=== PATIENT | female | born 1945 | race Caucasian/White ===

== ENCOUNTER 2023-08-26 19:48 | Inpatient (IN) | payer OTHER, SELFPAY ==
[2023-08-26] VITALS (8 sets, daily range): BP systolic 167–217; BP diastolic 82–94; PULSE 80–86; RESP 15–30; TEMP 36.9; O2SAT 90–100; BMI 34.4
--- NOTE | 2023-08-26 19:47 | DI.CT.S_ITS ---
PROCEDURE: CT STROKE INDICATIONS: Positive BE-FAST, Stroke symptoms TECHNIQUE: Noncontrast 4.5 mm thick angled axial sections acquired from the foramen magnum to the vertex, with coronal reformats. For radiation dose reduction, the following was used: automated exposure control, adjustment of mA and/or kV according to patient size. COMPARISON: None. FINDINGS: Image quality: Diagnostic. CSF spaces: Basal cisterns are patent. No extra-axial fluid collections. Ventricles are normal in size and shape. Brain: No midline shift. No intracranial masses or hemorrhage. No area of hypodensity in a large vascular distribution to suggest acute infarction. Periventricular hypodensity consistent with chronic microvascular ischemic change. Age-related parenchymal loss. Skull and face: Calvarium and visualized facial bones are intact, without suspicious lesions. Sinuses: Visualized sinuses and mastoids are clear. IMPRESSION: No acute intracranial pathology. No acute intracranial hemorrhage. Comment: Findings were discussed with Dr. Tammy Valladares at 8:10 p.m. This study fulfills neurological imaging criteria for inclusion or exclusion of acute stroke therapies based on available published neurological imaging guidelines. Dictated by: Vin Mary M.D. on 08/26/2023 at 20:07 Approved by: Vin Mary M.D. on 08/26/2023 at 20:10
--- NOTE | 2023-08-26 19:47 | DI.RAD.S_ITS ---
PROCEDURE: XR CHEST 1V INDICATIONS: Possible stroke TECHNIQUE: One view of the chest was acquired. COMPARISON: None. FINDINGS: Surgical changes and devices: None. Lungs and pleura: Lungs are clear. No pleural effusions or pneumothorax. Mediastinum: Mediastinal contours appear normal. Heart size appears prominent. Bones and chest wall: No suspicious bony lesions. Overlying soft tissues appear unremarkable. IMPRESSION: No acute cardiopulmonary abnormality is seen. Dictated by: Vin Mary M.D. on 08/26/2023 at 21:00 Approved by: Vin Mary M.D. on 08/26/2023 at 21:01
--- NOTE | 2023-08-26 19:48 | DI.CT.S_ITS ---
PROCEDURE: CT ANGIO HEAD AND NECK INDICATIONS: raheem pollard 4 hours TECHNIQUE: After the administration of intravenous contrast, 1 mm thick sections acquired from the aortic arch through the [place] of [place]. 3-dimensional tpdfpfr-wvjmgzlrz-fojjraivqo (MIP) and/or volume rendering reformats were acquired of the central intracranial vasculature and neck separately. For radiation dose reduction, the following was used: automated exposure control, adjustment of mA and/or kV according to patient size. COMPARISON: [facility], CT, CT STROKE, 08/26/2023, 20:00. FINDINGS: Image quality: Diagnostic. BRAIN: CSF spaces: Ventricles are normal in size and shape. Basal cisterns are patent. No extra-axial fluid collections. Brain: No significant abnormality of the brain can be seen. Skull and face: Calvarium and facial bones appear intact, without suspicious lesions. Orbits appear normal. Sinuses: Sinuses and mastoids are clear. HEAD CT ANGIOGRAPHY: Anterior circulation: Intracranial internal carotid arteries are normal in size and flow. The flow within the paired anterior cerebral arteries is normal and symmetric. The flow within the middle cerebral arteries is normal and symmetric. The anterior communicating artery is seen. No aneurysms are seen. Posterior circulation: Visualized portions of the vertebral arteries demonstrate normal caliber, and join to form a normal appearing basilar artery. Flow within the posterior cerebral arteries is normal and symmetric. No aneurysms are seen. NECK CT ANGIOGRAPHY: Carotid system: The great vessels demonstrate a conventional anatomy as they arise from the aortic arch. The origins of the common carotid arteries appear patent. The common carotid arteries demonstrate normal caliber and courses. The bifurcation regions are both widely patent. Moderate plaque at the bilateral carotid bulbs. Less than 50% stenosis at the bilateral ICA. The internal carotid arteries demonstrate normal calibers and courses. Posterior circulation: The origins of the vertebral arteries both appear widely patent. The more superior extracranial portions of both vertebral arteries also demonstrate normal courses and calibers. They join to form a normal appearing basilar artery. Soft tissues: Thyroid gland is prominent. Small ill-defined thyroid nodules. No enlarged lymph nodes identified. Bones: No suspicious bony lesions. Moderate degenerative change in the cervical spine. Visualized cervical spine appears normally aligned. IMPRESSION: 1. No large vessel occlusion. 2. No critical stenosis. Any quantitative measurements of stenosis were performed using NASCET criteria. Dictated by: Vin Mary M.D. on 08/26/2023 at 20:15 Approved by: Vin Mary M.D. on 08/26/2023 at 20:22
[2023-08-26] MEDS: ONDANSETRON 4 MG/2 ML INJ IV (19:54)
--- NOTE | 2023-08-26 20:04 | ED_ITS ---
HPI - Neuro Symptoms/Deficit General Chief Complaint: Neuro Symptoms/Deficit Stated Complaint: Stroke Time Seen by Provider: 08/26/23 20:03 History of Present Illness HPI Narrative: Patient is a 78-year-old female with unknown history presenting today as a code stroke. Last known well is unknown. She is visiting from out of town at the [facility] having difficulty speaking. Unclear if she is on any blood thinners. was there but apparently was not helpful with information. Patient is able to follow commands but very confused with word salad. No facial droop. After further investigation, Daughter tracked down the in the [facility]. He reports that they went to dinner at 6pm and she was able to have conversation. Upon further questioning investigation I personally spoke with the who states that possible last known well at 4:30 a.m.. Has been seems to be very unreliable. I did actually speak with the security ambassador at the [facility] who reports that patient had issues with tick it around 6:40 p.m. he reports the interactions with her at that time were a little off but he did not notice anything obvious. She would difficult time finding her machine which is not uncommon in the [facility]. Sometime after that they were called again to evaluate a patient where she was having difficulty speaking and he reports by the time EMS arrived she had significantly declined. Related Data Home Medications Medication Instructions Recorded Confirmed nystatin-triamcinolone 100,000 topical 08/26/23 unit/gram-0.1 % topical ointment Allergies Allergy/AdvReac Type Severity Reaction Status Date / Time No Known Drug Allergies Allergy Verified 08/26/23 21:15 Patient History Social History Smoking Status: Unknown if ever smoked Exam Initial Vital Signs Initial Vital Signs: Vital Signs Temperature 98.4 F 08/26/23 19:45 Pulse Rate 81 08/26/23 19:45 Respiratory Rate 15 08/26/23 19:45 Blood Pressure 217/94 H 08/26/23 19:45 Pulse Oximetry 96 08/26/23 19:45 Oxygen Delivery Method Room Air 08/26/23 19:45 GENERAL: Alert 70-year-old female HEENT: Head atraumatic,EOMI, pupils reactive, face symmetric, no drooping CARDIOVASCULAR: Regular rate and rhythm without murmurs, rubs or gallops. RESPIRATORY: Breath sounds equal bilaterally, no wheezes rales or rhonchi. ABDOMEN: Soft, nontender. Normoactive bowel sounds all 4 quadrants. No guarding or rebound. EXTREMITIES: Normal range of motion, no clubbing or edema. Neurovascularly intact NEUROLOGICAL: Alert and oriented x1. No slurring of speech but definite. Cranial nerves II through XII grossly intact. Good jbbajm-as-hpcd, good ubet-ra-kirw, strength equal bilaterally, significant expressive aphasia no slurring of speech, sensation in tact to soft touch bilaterally, no visual changes, no facial droop SKIN: Warm, dry, no laceration, no petechiae, no rashes or lesions. Scores NIH Stroke Scale Level of Conciousness: Alert, keenly responsive Ask month/age: Answers one question correctly, intubated follow commands Open/close eyes, close hand: Performs both tasks correctly Best gaze horizontal: Normal Visual souza: No visual loss Facial palsy: Normal symetrical movement Left arm drift: No drift for full 10 sec Right arm drift: No drift for full 10 sec Left leg drift: No drift for full 5 sec Right leg drift: No drift for full 5 sec Limb ataxia: Absent Sensory on face/arms/legs: Normal, no sensory loss Best language: Severe aphasia, not much is understood, fragmented Dysarthria: Normal Extinction or inattention: No abnormality Total NIH Stroke scale score: 3 Course Orders Ordered: ED Orders 08/26/23 19:47 CT Stroke Stat XR chest 1V Stat EKG-12 Lead Stat 08/26/23 19:48 CT angio head and neck Stat 08/26/23 20:12 Complete Blood Count AUTO DIFF Stat Comprehensive Metabolic Panel Stat Ethanol (ETOH) Stat PTT Partial Thromboplastin Juan Stat Prothrombin Time INR Stat Troponin & CK Cardiac Panel Stat 08/26/23 20:20 Covid-19 + FLU A/B + RSV - PCR Stat 08/26/23 21:07 Urinalysis and Microscopic Stat Urine Drug Screen, Rapid Stat Acetaminophen (Acetaminophen 325 Mg Tablet) 650 mg PO Q6H PRN PRN Reason: Fever/Mild Pain (1-3) Aspirin (Aspirin Ec 325 Mg Tablet) 325 mg PO DAILY NANDO Atorvastatin Calcium (Atorvastatin 20 Mg Tablet) 20 mg PO BEDTIME NANDO Enoxaparin Sodium (Enoxaparin 40 Mg/0.4 Ml Syringe) 40 mg SUBCUT DAILY NANDO Hydralazine HCl (Hydralazine 20 Mg/Ml Vial) 10 mg IV Q6HR PRN PRN Reason: Hypertension sbp>170 Last Admin: 08/27/23 00:33 Dose: 10 mg Documented By: AT Magnesium Hydroxide (Magnesium Hydroxide 30 Ml Udc) 30 ml PO DAILY PRN PRN Reason: Constipation Naloxone HCl (Naloxone 0.4 Mg/Ml Vial) 0.2 mg IV Q2MIN PRN PRN Reason: Opiate Reversal Ondansetron HCl (Ondansetron 4 Mg/2 Ml Inj) 4 mg IV NOW PRN PRN Reason: Nausea And Vomiting Ondansetron HCl (Ondansetron 4 Mg Odt) 4 mg SL NOW PRN PRN Reason: Nausea And Vomiting Ondansetron HCl (Ondansetron 4 Mg/2 Ml Inj) 4 mg IV Q8HR PRN PRN Reason: Nausea And Vomiting Discontinued Medications Aspirin (Aspirin 81 Mg Chew Tab) 324 mg PO NOW ONE Stop: 08/26/23 20:56 Last Admin: 08/26/23 20:57 Dose: 324 mg Documented By: BB Alteplase, Recombinant (Activase) 9 mg in 9 mls @ 540 mls/hr 0.09 mg/kg (9 mg) IV NOW ONE Stop: 08/26/23 22:04 Last Admin: 08/26/23 22:25 Dose: Not Given Documented By: ROSEY Alteplase, Recombinant (Activase) 80.8 mg in 80.8 mls @ 80.8 mls/hr 0.81 mg/kg (80.8 mg) IV NOW ONE Stop: 08/26/23 23:04 Last Admin: 08/26/23 22:26 Dose: Not Given Documented By: BB Labetalol HCl (Labetalol 20 Mg/4 Ml Syringe) 10 mg IV NOW ONE Stop: 08/26/23 21:55 Last Admin: 08/26/23 22:25 Dose: Not Given Documented By: BB Ondansetron HCl (Ondansetron 4 Mg/2 Ml Inj) 4 mg IV NOW ONE Stop: 08/26/23 20:12 Last Admin: 08/26/23 19:54 Dose: 4 mg Documented By: BB Vital Signs Vital signs: Vital Signs - 8 hr 08/26/23 19:45 08/26/23 19:45 08/26/23 20:16 Temperature 98.4 F 98.4 F Pulse Rate 81 81 84 Respiratory Rate 15 15 24 Blood Pressure 217/94 H 217/94 H Pulse Oximetry 96 96 90 L Oxygen Delivery Method Room Air Room Air Oxygen Flow Rate 08/26/23 20:16 08/26/23 20:30 08/26/23 20:30 Temperature Pulse Rate 82 Respiratory Rate 29 H Blood Pressure 195/82 H 206/91 H Pulse Oximetry 92 Oxygen Delivery Method Room Air Oxygen Flow Rate 08/26/23 20:46 08/26/23 20:46 08/26/23 21:00 Temperature Pulse Rate 86 80 Respiratory Rate 30 H 15 Blood Pressure 214/87 H Pulse Oximetry 97 100 Oxygen Delivery Method Nasal Cannula Nasal Cannula Oxygen Flow Rate 2 2 08/26/23 21:00 08/26/23 21:15 08/26/23 21:15 Temperature Pulse Rate 80 Respiratory Rate 15 Blood Pressure 195/89 H 199/83 H Pulse Oximetry 97 Oxygen Delivery Method Oxygen Flow Rate 08/26/23 21:30 08/26/23 21:30 08/26/23 22:25 Temperature Pulse Rate 82 85 Respiratory Rate 15 Blood Pressure 167/92 H 167/92 H Pulse Oximetry 97 Oxygen Delivery Method Room Air Oxygen Flow Rate MDM - Neuro Symptoms/Deficit Lab Data 08/26/23 20:12 08/26/23 20:12 Labs: Lab Results 08/26/23 08/26/23 08/26/23 Range/Units 20:12 20:20 21:07 WBC 8.1 (4.5-11.0) X10^3/uL RBC 4.00 (4.0-5.2) X10^6/uL Hgb 10.5 L (12.0-16.0) g/dL Hct 32.3 L (36-46) % MCV 80.7 (80-100) fL MCH 26.1 (26-34) PG MCHC 32.4 (30-36) % RDW 15.1 H (11.6-14.8) % Plt Count 241 (150-400) X10^3/uL Neut % (Auto) 67.4 (50-75) % Lymph % (Auto) 21.4 L (25-40) % Elk % (Auto) 8.7 (3-14) % Eos % (Auto) 2.0 (2-4) % Baso % (Auto) 0.5 (0-2) % Neut # (Auto) 5500 (3307-1925) /uL Lymph # (Auto) 1700 (0649-9230) /uL Elk # (Auto) 700 (0-900) /uL Eos # (Auto) 200 (0-450) /uL Baso # (Auto) 0 (0-100) /uL PT 12.9 H (9.4-12.5) SECONDS INR 1.1 (0.9-1.3) APTT 28 (25.1-36.5) SECONDS Sodium 134 L (137-145) mmol/L Potassium 3.9 (3.4-5.1) mmol/L Chloride 100 (98-107) mmol/L Carbon Dioxide 26 (22-32) mmol/L BUN 21 H (7-17) mg/dL Creatinine 1.05 H (0.52-1.04) mg/dL Estimated GFR 54 L (>60) mL/min BUN/Creatinine Ratio 20.0 (6-22) Glucose 96 (80-110) mg/dL Calcium 10.3 H (8.4-10.2) mg/dL Total Bilirubin 0.5 (0.2-1.3) mg/dL AST 25 (14-36) IU/L ALT 20 (<35) IU/L Alkaline Phosphatase 60 (38-126) U/L Total Creatine Kinase 138 H (30-135) U/L Troponin I < 0.012 (0.01-0.034) ng/mL Total Protein 7.4 (6.3-8.2) g/dL Albumin 4.1 (3.5-5.0) g/dL Globulin 3.3 (1.7-4.1) g/dL Albumin/Globulin Ratio 1.2 (1.0-2.8) Urine Color Yellow Urine Appearance Clear Urine pH 5.5 (4.5-8.0) Ur Specific [place] 1.020 (1.000-1.035) Urine Protein Negative (Negative) Urine Glucose (UA) Negative (Negative) g/dL Urine Ketones Trace H (NEGATIVE) Urine Occult Blood Negative (Negative) Urine Nitrate Negative (Negative) Urine Bilirubin Negative (NEGATIVE) Urine Urobilinogen 0.2 (0.2) E.U./dL Ur Leukocyte Esterase Negative (NEGATIVE) Urine RBC 0-1/hpf (0-5/HPF) Urine WBC None seen (0-5/HPF) Ur Squamous Epith Cells 0-1 /hpf (0-5/HPF) Urine Bacteria None seen (None) Ur Culture Indicated? Cult not indicated U Opiates 300ng/mL cut Negative (Negative) Ur Oxycodone Screen Negative (Negative) Urine Methadone Screen Negative (Negative) Ur Barbiturates Screen Negative (Negative) U Tricyclic Antidepress Negative (Negative) Ur Phencyclidine Scrn Negative (Negative) Ur Amphetamines Screen Negative (Negative) U Methamphetamines Scrn Negative (Negative) Ur MDMA Scrn (Ecstasy) Negative (Negative) U Benzodiazepines Scrn Negative (Negative) Urine Cocaine Screen Negative (Negative) U Marijuana (THC) Screen Negative (Negative) Urine Specific [place] (Normal) Ethyl Alcohol < 10 ( - 10) mg/dL Ur Creatinine (Normal) SARS-CoV-2 (PCR) Negative (Negative) Influenza A (RT-PCR) Flu a negative (NEGATIVE) Influenza B (RT-PCR) Flu b negative (NEGATIVE) RSV (PCR) Negative (Negative) 08/26/23 Range/Units 21:07 WBC (4.5-11.0) X10^3/uL RBC (4.0-5.2) X10^6/uL Hgb (12.0-16.0) g/dL Hct (36-46) % MCV (80-100) fL MCH (26-34) PG MCHC (30-36) % RDW (11.6-14.8) % Plt Count (150-400) X10^3/uL Neut % (Auto) (50-75) % Lymph % (Auto) (25-40) % Elk % (Auto) (3-14) % Eos % (Auto) (2-4) % Baso % (Auto) (0-2) % Neut # (Auto) (5746-6329) /uL Lymph # (Auto) (1547-5032) /uL Elk # (Auto) (0-900) /uL Eos # (Auto) (0-450) /uL Baso # (Auto) (0-100) /uL PT (9.4-12.5) SECONDS INR (0.9-1.3) APTT (25.1-36.5) SECONDS Sodium (137-145) mmol/L Potassium (3.4-5.1) mmol/L Chloride (98-107) mmol/L Carbon Dioxide (22-32) mmol/L BUN (7-17) mg/dL Creatinine (0.52-1.04) mg/dL Estimated GFR (>60) mL/min BUN/Creatinine Ratio (6-22) Glucose (80-110) mg/dL Calcium (8.4-10.2) mg/dL Total Bilirubin (0.2-1.3) mg/dL AST (14-36) IU/L ALT (<35) IU/L Alkaline Phosphatase (38-126) U/L Total Creatine Kinase (30-135) U/L Troponin I (0.01-0.034) ng/mL Total Protein (6.3-8.2) g/dL Albumin (3.5-5.0) g/dL Globulin (1.7-4.1) g/dL Albumin/Globulin Ratio (1.0-2.8) Urine Color Urine Appearance Urine pH Normal (4.5-8.0) Ur Specific [place] (1.000-1.035) Urine Protein (Negative) Urine Glucose (UA) (Negative) g/dL Urine Ketones (NEGATIVE) Urine Occult Blood (Negative) Urine Nitrate (Negative) Urine Bilirubin (NEGATIVE) Urine Urobilinogen (0.2) E.U./dL Ur Leukocyte Esterase (NEGATIVE) Urine RBC (0-5/HPF) Urine WBC (0-5/HPF) Ur Squamous Epith Cells (0-5/HPF) Urine Bacteria (None) Ur Culture Indicated? U Opiates 300ng/mL cut (Negative) Ur Oxycodone Screen (Negative) Urine Methadone Screen (Negative) Ur Barbiturates Screen (Negative) U Tricyclic Antidepress (Negative) Ur Phencyclidine Scrn (Negative) Ur Amphetamines Screen (Negative) U Methamphetamines Scrn (Negative) Ur MDMA Scrn (Ecstasy) (Negative) U Benzodiazepines Scrn (Negative) Urine Cocaine Screen (Negative) U Marijuana (THC) Screen (Negative) Urine Specific [place] Normal (Normal) Ethyl Alcohol ( - 10) mg/dL Ur Creatinine Normal (Normal) SARS-CoV-2 (PCR) (Negative) Influenza A (RT-PCR) (NEGATIVE) Influenza B (RT-PCR) (NEGATIVE) RSV (PCR) (Negative) Point of Care Testing Glucose POC 91 Urine Dip Bedside Urine Glucose Negative Bedside Urine Bilirubin - Negative Bedside Urine Ketone +/- 5 Urine Specific [place] 1.015 Bedside Urine Occult Blood - Negative Bedside Urine pH 6 Bedside Urine Protein +/- 15 Bedside Urine Urobilinogen - Negative Bedside Urine Nitrite - Negative Bedside Urine Leukocytes - Negative Esterase Imaging Data CT scan - head: Radiologist's Impression: PROCEDURE: CT STROKE INDICATIONS: Positive BE-FAST, Stroke symptoms TECHNIQUE: Noncontrast 4.5 mm thick angled axial sections acquired from the foramen magnum to the vertex, with coronal reformats. For radiation dose reduction, the following was used: automated exposure control, adjustment of mA and/or kV according to patient size. COMPARISON: None. FINDINGS: Image quality: Diagnostic. CSF spaces: Basal cisterns are patent. No extra-axial fluid collections. Ventricles are normal in size and shape. Brain: No midline shift. No intracranial masses or hemorrhage. No area of hypodensity in a large vascular distribution to suggest acute infarction. Periventricular hypodensity consistent with chronic microvascular ischemic change. Age-related parenchymal loss. Skull and face: Calvarium and visualized facial bones are intact, without suspicious lesions. Sinuses: Visualized sinuses and mastoids are clear. IMPRESSION: No acute intracranial pathology. No acute intracranial hemorrhage. Comment: Findings were discussed with Dr. Tammy Valladares at 8:10 p.m. This study fulfills neurological imaging criteria for inclusion or exclusion of acute stroke therapies based on available published neurological imaging guidelines. Dictated by: Vin Mary M.D. on 08/26/2023 at 20:07 CTA - brain/neck: Radiologist's Impression: PROCEDURE: CT ANGIO HEAD AND NECK INDICATIONS: word salad, lkw 4 hours TECHNIQUE: After the administration of intravenous contrast, 1 mm thick sections acquired from the aortic arch through the [place] of [place]. 3-dimensional kblufvs-juylxqyqu-yzgjmdgqey (MIP) and/or volume rendering reformats were acquired of the central intracranial vasculature and neck separately. For radiation dose reduction, the following was used: automated exposure control, adjustment of mA and/or kV according to patient size. COMPARISON: [facility], CT, CT STROKE, 08/26/2023, 20:00. FINDINGS: Image quality: Diagnostic. BRAIN: CSF spaces: Ventricles are normal in size and shape. Basal cisterns are patent. No extra-axial fluid collections. Brain: No significant abnormality of the brain can be seen. Skull and face: Calvarium and facial bones appear intact, without suspicious lesions. Orbits appear normal. Sinuses: Sinuses and mastoids are clear. HEAD CT ANGIOGRAPHY: Anterior circulation: Intracranial internal carotid arteries are normal in size and flow. The flow within the paired anterior cerebral arteries is normal and symmetric. The flow within the middle cerebral arteries is normal and symmetric. The anterior communicating artery is seen. No aneurysms are seen. Posterior circulation: Visualized portions of the vertebral arteries demonstrate normal caliber, and join to form a normal appearing basilar artery. Flow within the posterior cerebral arteries is normal and symmetric. No aneurysms are seen. NECK CT ANGIOGRAPHY: Carotid system: The great vessels demonstrate a conventional anatomy as they arise from the aortic arch. The origins of the common carotid arteries appear patent. The common carotid arteries demonstrate normal caliber and courses. The bifurcation regions are both widely patent. Moderate plaque at the bilateral carotid bulbs. Less than 50% stenosis at the bilateral ICA. The internal carotid arteries demonstrate normal calibers and courses. Posterior circulation: The origins of the vertebral arteries both appear widely patent. The more superior extracranial portions of both vertebral arteries also demonstrate normal courses and calibers. They join to form a normal appearing basilar artery. Soft tissues: Thyroid gland is prominent. Small ill-defined thyroid nodules. No enlarged lymph nodes identified. Bones: No suspicious bony lesions. Moderate degenerative change in the cervical spine. Visualized cervical spine appears normally aligned. IMPRESSION: 1. No large vessel occlusion. 2. No critical stenosis. Any quantitative measurements of stenosis were performed using NASCET criteria. Dictated by: Vin Mary M.D. on 08/26/2023 at 20:15 ECG Data Interpretation: Sinus rhythm rate 83 WI interval 1 6 QRS [address] changes no T-wave inversions MDM Narrative Medical decision making narrative: Patient 78 year-old female presents today as a code stroke however last known well is really unknown. is extremely poor historian. She has significant expressive aphasia no other focal deficits. NIH 2 She has not a tPA candidate due to last unknown well. Noncontrast CT head does not show any intracranial hemorrhage and CT angio does not show large vessel occlusion. She is noted to be extremely hypertensive consistent with stroke. Blood work has been reviewed and overall reassuring. Daughter Brenda called and updated on patient status. [phone] Priyank [phone]-- left voicemail Dr. Valdez he reports last known well at 6:[address] Mckeon stroke Neurology updated on patient's symptoms test results has reviewed CT. She did a video conference call will I was trying to track down facial last known well. At this time it is decided that the is not a reliable he historian patient is out of window for tPA unknown last known well specifically. Though possible at 6:40 p.m.. Has spoken to both daughters and security ambassador and attempt to track down the last known well is time very difficult Patient is actually improving complaining of headache able to have a conversation. He is given aspirin Dr. Valdez accepts patient. Blood work reviewed EKG reviewed Imaging reviewed Differential diagnosis CVA TIA metabolic encephalopathy, intoxication Stroke Core Measures Exclusion Criteria TPA in CVA: Unknown Onset of Symptoms Critical Care Time Critical Care Time Critical Care Time: Yes Total Critical Care Time: 40 Attestation: The high probability of a clinically significant, sudden or life threatening deterioration of the [cardiovascular] system(s) required my full and direct attention, intervention and personal management. The aggregate critical care time was 40 minutes. This time is in addition to time spent performing reported procedures but includes the following: [x] Data Review and interpretation [x] Patient assessment and monitoring of vital signs [x] Documentation [x] Medication orders and management Discharge Plan Departure Patient Disposition: Admitted As Inpatient Clinical Impression: Cerebrovascular accident Admit Date/Time: 08/26/23 22:37 Admit Provider: Devante Valdez
--- NOTE | 2023-08-26 20:12 | PC.NURSE ---
Brother Obinna Mercado called, did not have information on pt's health history but confirmed she lived in [place]. Gave the following information: = Jarrod Suarez Daughters= Brenda Suarez [phone] ([place]) & Hanh Valle [phone] ([facility])
[2023-08-26 20:22] LABS: Add Manual Diff / Slide Review NO; Basophils Absolute Auto 0 /uL (0-100); Basophils Percent Auto 0.5 % (0-2); Eosinophils Absolute Auto 200 /uL (0-450); Hematocrit 32.3 % (36-46); Hemoglobin 10.5 g/dL (12.0-16.0); Lymphocytes Absolute Auto 1700 /uL (1100-4500); Lymphocytes Percent Auto 21.4 % (25-40); Mean Corpuscular HGB Conc 32.4 % (30-36); Mean Corpuscular Hemoglobin 26.1 PG (26-34); Mean Corpuscular Volume 80.7 fL (80-100); Monocytes Absolute Auto 700 /uL (0-900); Monocytes Percent Auto 8.7 % (3-14); Neutrophils Absolute Auto 5500 /uL (1500-7000); Neutrophils Percent Auto 67.4 % (50-75); Platelet Count 241 X10^3/uL (150-400); Red Cell Distribution Width 15.1 % (11.6-14.8); White Blood Cell Count 8.1 X10^3/uL (4.5-11.0)
[2023-08-26 20:30] LABS: INR 1.1 (0.9-1.3); Prothrombin Time 12.9 SECONDS (9.4-12.5)
[2023-08-26 20:32] LABS: PTT Partial Thromboplastin Tim 28 SECONDS (25.1-36.5)
[2023-08-26 20:37] LABS: Alanine Aminotransferase 20 IU/L (<35); Albumin 4.1 g/dL (3.5-5.0); Albumin Globulin Ratio 1.2 (1.0-2.8); Alkaline Phosphatase 60 U/L (38-126); Aspartate Aminotransferase 25 IU/L (14-36); Bilirubin Total 0.5 mg/dL (0.2-1.3); Blood Urea Nitrogen 21 mg/dL (7-17); Calcium 10.3 mg/dL (8.4-10.2); Carbon Dioxide 26 mmol/L (22-32); Chloride 100 mmol/L (98-107); Creatine Kinase 138 U/L (30-135); Estimated Glomerular Filt Rate 54 mL/min (>60); Ethanol (ETOH) < 10 mg/dL; Globulin 3.3 g/dL (1.7-4.1); Glucose 96 mg/dL (80-110); HEMOLYSIS < 15 (0-50); Potassium 3.9 mmol/L (3.4-5.1); Sodium 134 mmol/L (137-145); Total Protein 7.4 g/dL (6.3-8.2)
[2023-08-26 20:48] LABS: Troponin I < 0.012 ng/mL (0.01-0.034)
[2023-08-26] MEDS: ASPIRIN 81 MG CHEW TAB 324 MG PO (20:57)
[2023-08-26 21:12] LABS: Influenza A - CEPHEID Flu A NEGATIVE (NEGATIVE); Influenza B - CEPHEID Flu B NEGATIVE (NEGATIVE); Respiratory Syncytial Virus Negative (Negative)
[2023-08-26 21:15] LABS: COVID-19 CEPHEID 4-PLEX PCR Negative (Negative)
[2023-08-26 21:18] LABS: Appearance Urine UA CLEAR; Bilirubin Urine UA NEGATIVE (NEGATIVE); Color Urine UA YELLOW; Glucose Urine UA NEGATIVE (Negative); Ketones Urine UA TRACE (NEGATIVE); Leukocyte Esterase Urine UA NEGATIVE (NEGATIVE); Nitrite Urine UA NEGATIVE (Negative); Occult Blood Urine UA NEGATIVE (Negative); Protein Urine UA NEGATIVE (Negative); Urobilinogen Urine UA 0.2 E.U./dL (0.2)
[2023-08-26 21:22] LABS: Bacteria Urine None Seen; Culture Indicated Urine Cult Not Indicated; RBC Urine 0-1/HPF (0-5/HPF); Squamous Epithelial Cell Urine 0-1 /HPF (0-5/HPF); Ur Creatinine Normal (Normal); Ur Specific Gravity Normal (Normal); Urine pH Normal (Normal); WBC Urine None Seen (0-5/HPF); pH Urine UA 5.5 (4.5-8.0)
[2023-08-26 21:23] LABS: UR Morphine/Opiate cutoff 300 Negative (Negative); Urine Amphetamines Negative (Negative); Urine Barbiturates Negative (Negative); Urine Benzodiazepines Negative (Negative); Urine Cocaine Negative (Negative); Urine MDMA Negative (Negative); Urine Methadone Negative (Negative); Urine Methamphetamines Negative (Negative); Urine Oxycodone Negative (Negative); Urine Phencyclidine Negative (Negative); Urine Tetrahydrocannabinol Negative (Negative); Urine Tricyclic Antidepressant Negative (Negative)
--- NOTE | 2023-08-26 23:21 | PC.NURSE ---
Pt arrived to the floor via stretcher. Oriented x1, can only tell me her first name clearly, no slurring, but has word salad. Pupils reactive, can move all extremities. Elevated BP, SR on tele. Unable to obtain medical history or medication rec at this time. Sanchez placed in ER, draining clear yellow urine. Pt has a few small spots on back that are red, (sister in law stated in ER that pt had recent mole removal) otherwise skin intact. Bed alarm is on, call light in reach.
--- NOTE | 2023-08-26 23:34 | P.HP_ITS ---
History of Present Illness History of Present Illness Chief complaint: Stroke Narrative: 78 years old female with a past medical history of hypertension and not a very good historian at this time was brought to the emergency room as a code stroke. Patient was visiting from out of town at the [facility] and developed difficulty with speech and altered mental status. Time of onset for the symptoms were unclear. Initially, it was started around 6 PM. I spoke to the daughter who discussed with her dad/patient's and also we reviewed with the security staff. The onset of symptoms were still unclear at this time. Patient has difficulty in comprehending and able to follow commands only intermittently. Unable to get any history from the patient and has word salad at this time. Able to raise extremities at times but full evaluation is unable to be done. Blood pressure on arrival was 217/94. Follow-up CT brain/CT angio of the head and neck was negative in the emergency room. Discussed with teleneuro and after further review, was deemed not a candidate for tPA at this time. Further basic labs including CBC showed a hemoglobin of 10.5 while the electrolytes showed a creatinine of 1.05 and a blood sugar of 96 with a troponin of 0.012. Urine analysis was negative for WBCs. Urine tox screen was negative. Influenza and COVID was negative. Patient received a dose of aspirin 325 mg and admitted for further evaluation FORMERLY [facility], [facility] Social History Smoking Status: Unknown if ever smoked Comment: unable to review to cognition. no smoking per records Meds Home Medications and Allergies Home Medications Medication Instructions Recorded Confirmed Type nystatin-triamcinolone 100,000 topical 08/26/23 History unit/gram-0.1 % topical ointment Allergies Allergy/AdvReac Type Severity Reaction Status Date / Time No Known Drug Allergies Allergy Verified 08/26/23 21:15 Review of Systems Review of Systems Narrative: Unable to do full review of system due to patient's confusion and expressive aphasia Exam Vital Signs (past 8 hours): - 08/26/23 19:45 08/26/23 19:45 08/26/23 20:16 Temperature 98.4 F 98.4 F Pulse Rate 81 81 84 Respiratory Rate 24 Blood Pressure 217/94 H 217/94 H Pulse Oximetry 96 96 90 L Oxygen Delivery Method Room Air Room Air Oxygen Flow Rate 08/26/23 20:16 08/26/23 20:30 08/26/23 20:30 Temperature Pulse Rate 82 Respiratory Rate 29 H Blood Pressure 195/82 H 206/91 H Pulse Oximetry 92 Oxygen Delivery Method Room Air Oxygen Flow Rate 08/26/23 20:46 08/26/23 20:46 08/26/23 21:00 Temperature Pulse Rate 86 80 Respiratory Rate 30 H 15 Blood Pressure 214/87 H Pulse Oximetry 97 100 Oxygen Delivery Method Nasal Cannula Nasal Cannula Oxygen Flow Rate 2 2 08/26/23 21:00 08/26/23 21:15 08/26/23 21:15 Temperature Pulse Rate 80 Respiratory Rate 15 Blood Pressure 195/89 H 199/83 H Pulse Oximetry 97 Oxygen Delivery Method Oxygen Flow Rate 08/26/23 21:30 08/26/23 21:30 08/26/23 22:25 Temperature Pulse Rate 82 85 Respiratory Rate 15 Blood Pressure 167/92 H 167/92 H Pulse Oximetry 97 Oxygen Delivery Method Room Air Oxygen Flow Rate Oxygen Delivery Method Room Air Oxygen Flow Rate 2 Narrative Exam Narrative: Patient is awake opens eyes intermittently and tracks at times. Intermittently able to lift her hand up. Pupils are reactive to light bilaterally. Full evaluation is unable to be done at this time Objective Imaging CT scan - head: Radiologist's impression: CT scan of the brain and CT angio of the head and neck shows no acute intracranial process or flow significant stenosis Labs 08/26/23 20:12 08/26/23 20:12 Labs: Laboratory Results - last 24 hr 08/26/23 08/26/23 08/26/23 20:12 20:20 21:07 WBC 8.1 RBC 4.00 Hgb 10.5 L Hct 32.3 L MCV 80.7 MCH 26.1 MCHC 32.4 RDW 15.1 H Plt Count 241 Neut % (Auto) 67.4 Lymph % (Auto) 21.[address] [place] % (Auto) 8.7 Eos % (Auto) 2.0 Baso % (Auto) 0.5 Neut # (Auto) 5500 Lymph # (Auto) 1700 [place] # (Auto) 700 Eos # (Auto) 200 Baso # (Auto) 0 PT 12.9 H INR 1.1 APTT 28 Sodium 134 L Potassium 3.9 Chloride 100 Carbon Dioxide 26 BUN 21 H Creatinine 1.05 H Estimated GFR 54 L BUN/Creatinine Ratio 20.0 Glucose 96 Calcium 10.3 H Total Bilirubin 0.5 AST 25 ALT 20 Alkaline Phosphatase 60 Total Creatine Kinase 138 H Troponin I < 0.012 Total Protein 7.4 Albumin 4.1 Globulin 3.3 Albumin/Globulin Ratio 1.2 Urine Color Yellow Urine Appearance Clear Urine pH 5.5 Ur Specific [place] 1.020 Urine Protein Negative Urine Glucose (UA) Negative Urine Ketones Trace H Urine Occult Blood Negative Urine Nitrate Negative Urine Bilirubin Negative Urine Urobilinogen 0.2 Ur Leukocyte Esterase Negative Urine RBC 0-1/hpf Urine WBC None seen Ur Squamous Epith Cells 0-1 /hpf Urine Bacteria None seen Ur Culture Indicated? Cult not indicated U Opiates 300ng/mL cut Negative Ur Oxycodone Screen Negative Urine Methadone Screen Negative Ur Barbiturates Screen Negative U Tricyclic Antidepress Negative Ur Phencyclidine Scrn Negative Ur Amphetamines Screen Negative U Methamphetamines Scrn Negative Ur MDMA Scrn (Ecstasy) Negative U Benzodiazepines Scrn Negative Urine Cocaine Screen Negative U Marijuana (THC) Screen Negative Urine Specific [place] Ethyl Alcohol < 10 Ur Creatinine SARS-CoV-2 (PCR) Negative Influenza A (RT-PCR) Flu a negative Influenza B (RT-PCR) Flu b negative RSV (PCR) Negative 08/26/23 21:07 WBC RBC Hgb Hct MCV MCH MCHC RDW Plt Count Neut % (Auto) Lymph % (Auto) [place] % (Auto) Eos % (Auto) Baso % (Auto) Neut # (Auto) Lymph # (Auto) [place] # (Auto) Eos # (Auto) Baso # (Auto) PT INR APTT Sodium Potassium Chloride Carbon Dioxide BUN Creatinine Estimated GFR BUN/Creatinine Ratio Glucose Calcium Total Bilirubin AST ALT Alkaline Phosphatase Total Creatine Kinase Troponin I Total Protein Albumin Globulin Albumin/Globulin Ratio Urine Color Urine Appearance Urine pH Normal Ur Specific [place] Urine Protein Urine Glucose (UA) Urine Ketones Urine Occult Blood Urine Nitrate Urine Bilirubin Urine Urobilinogen Ur Leukocyte Esterase Urine RBC Urine WBC Ur Squamous Epith Cells Urine Bacteria Ur Culture Indicated? U Opiates 300ng/mL cut Ur Oxycodone Screen Urine Methadone Screen Ur Barbiturates Screen U Tricyclic Antidepress Ur Phencyclidine Scrn Ur Amphetamines Screen U Methamphetamines Scrn Ur MDMA Scrn (Ecstasy) U Benzodiazepines Scrn Urine Cocaine Screen U Marijuana (THC) Screen Urine Specific [place] Normal Ethyl Alcohol Ur Creatinine Normal SARS-CoV-2 (PCR) Influenza A (RT-PCR) Influenza B (RT-PCR) RSV (PCR) Assessment & Plan Assessment & Plan narrative: 78 years old female with a past medical history of hypertension and not a very good historian at this time was brought to the emergency room as a code stroke. Patient was visiting from out of town at the [facility] and developed difficulty with speech and altered mental status. Time of onset for the symptoms were unclear. Initially, it was started around 6 PM. I spoke to the daughter who discussed with her dad/patient's and also we reviewed with the security staff. The onset of symptoms were still unclear at this time. Patient has difficulty in comprehending and able to follow commands only intermittently. Unable to get any history from the patient and has word salad at this time. Able to raise extremities at times but full evaluation is unable to be done. Blood pressure on arrival was 217/94. Follow-up CT brain/CT angio of the head and neck was negative in the emergency room. Discussed with teleneuro and after further review, was deemed not a candidate for tPA at this time. Further basic labs including CBC showed a hemoglobin of 10.5 while the electrolytes showed a creatinine of 1.05 and a blood sugar of 96 with a troponin of 0.012. Urine analysis was negative for WBCs. Urine tox screen was negative. Influenza and COVID was negative. Patient received a dose of aspirin 325 mg and admitted for further evaluation 1. CVA acute with expressive aphasia and altered mental status. Patient is apparently oriented X3 at baseline and takes care of her but now has difficulty with comprehension. Does not appear to be in acute distress at this time. Her vision and hearing appears to be intact. Able to move her extremities at times to commands. Did receive a dose of aspirin 325 mg in the emergency room. CT head and CT angio of the head and neck shows no acute process or flow significant stenosis. EKG shows a sinus rhythm. For now continue the aspirin and consult physical/occupational and speech therapy. Focus on risk factor reduction with gradual reduction of the blood pressure. Avoid wide fluctuations of blood pressure. Monitor in the telemetry with as needed IV hydralazine to keep a target systolic of 170?180. Follow-up with an echocardiogram and MRI of the brain. Review home medications. Check a lipid panel in the morning 2. Renal dysfunction appears more of mild volume depletion with a BUN of 21 and a creatinine on 1.05. Swallow function is still intact and encourage oral hydration. Gentle IV hydration if patient is not able to take p.o. 3. Anemia. MCV is normal but the RDW is increased. Check serum iron/B12/folate and stool occult. No reported history of bleeding per rectum 4 DVT prophylaxis will be with Lovenox CODE STATUS is full Plan of care discussed with the care team and also with the daughter on the phone Patient is admitted under inpatient status. Given the acute CVA with significant expressive aphasia needing further workup and intervention, patient meets criteria for inpatient with expected length of stay greater than 2 midnights Patient was evaluated with a video communication device. Provider is located in [facility]. Time spent is 20 minutes
[2023-08-27] MEDS: HYDRALAZINE 20 MG/ML VIAL 10 MG IV (00:33)
[2023-08-27 01:00] VITALS: BP 191/61; PULSE 88; O2SAT 90
[2023-08-27 04:36] LABS: Add Manual Diff / Slide Review NO; Basophils Absolute Auto 0 /uL (0-100); Basophils Percent Auto 0.3 % (0-2); Eosinophils Absolute Auto 0 /uL (0-450); Eosinophils Percent Auto 0.1 % (2-4); Hematocrit 31.7 % (36-46); Hemoglobin 10.4 g/dL (12.0-16.0); Lymphocytes Absolute Auto 900 /uL (1100-4500); Lymphocytes Percent Auto 8.7 % (25-40); Mean Corpuscular HGB Conc 32.8 % (30-36); Mean Corpuscular Hemoglobin 26.3 PG (26-34); Monocytes Absolute Auto 500 /uL (0-900); Monocytes Percent Auto 5.3 % (3-14); Neutrophils Absolute Auto 8600 /uL (1500-7000); Neutrophils Percent Auto 85.6 % (50-75); Platelet Count 270 X10^3/uL (150-400); Red Blood Cell Count 3.96 X10^6/uL (4.0-5.2); Red Cell Distribution Width 15.1 % (11.6-14.8)
[2023-08-27 04:45] LABS: Alanine Aminotransferase 20 IU/L (<35); Albumin Globulin Ratio 1.2 (1.0-2.8); Alkaline Phosphatase 53 U/L (38-126); Aspartate Aminotransferase 25 IU/L (14-36); BUN Creatinine Ratio 17.4 (6-22); Bilirubin Total 0.6 mg/dL (0.2-1.3); Blood Urea Nitrogen 16 mg/dL (7-17); Calcium 9.7 mg/dL (8.4-10.2); Carbon Dioxide 25 mmol/L (22-32); Chloride 99 mmol/L (98-107); Cholesterol 133 mg/dL (140-199); Estimated Glomerular Filt Rate > 60 mL/min (>60); Globulin 3.3 g/dL (1.7-4.1); Glucose 170 mg/dL (80-110); HDL Cholesterol 55 mg/dL (40-60); HEMOLYSIS < 15 (0-50); LDL Cholesterol Calculated 66 mg/dL (<100); Magnesium 1.4 mg/dL (1.6-2.3); Phosphorous 3.7 mg/dL (2.8-4.1); Potassium 4.1 mmol/L (3.4-5.1); Sodium 132 mmol/L (137-145); Total Protein 7.3 g/dL (6.3-8.2); Triglycerides 59 mg/dL (35-150)
[2023-08-27 04:56] LABS: Troponin I 0.036 ng/mL (0.01-0.034)
[2023-08-27 05:30] VITALS: BP 153/58; PULSE 100; RESP 16; TEMP 36.6; O2SAT 95
[2023-08-27] MEDS: MAGNESIUM SULFATE 2 GM/50 ML PIGGYBACK IV ×2 (05:42→11:06)
[2023-08-27 05:50] LABS: Folate 13.7 ng/mL (2.76-20.0); Vitamin B12 183 pg/mL (239-931)
[2023-08-27 05:54] VITALS: BP 153/58
--- NOTE | 2023-08-27 07:13 | DI.ECHO.S_ITS ---
[facility] +---------+ Hospital +---------+ : : [address] : : : : [id number] : : : : Phone: [phone]---------+ Echocardiogram Report + + :Name: CLARA POND Study Date: 08/27/2023 Height: 67 in : :[facility] ReadingLocation: Weight: 220 lb : : Gender: Female BSA: 2.1 m2 : :: 1945 Age: 78 yrs BP: 133/67 mmHg: :Reason For Study: CVA : :Ordering Physician: LAWRENCE, : :GUERLINE Mobley MD Performed By: Tasha Mcrae : :Referring: GUERLINE BRAVO MD : + + Interpretation Summary The left ventricle is normal in size. The ejection fraction is estimated to be 65-70%. No obvious LV thrombus. The right ventricle is normal in size and function. Injection of contrast documented no interatrial shunt. No significant valvular pathology seen. The IVC is of normal diameter and collapses greater than 50% with a sniff. This suggests a low right atrial pressure of 3 mm Hg. Rhythm sinus. Aortic arch not visualized. Procedure: A two-dimensional transthoracic echocardiogram with color flow and Doppler was performed. The study quality was technically adequate. There is no prior echocardiogram noted for this patient. The patient was in sinus rhythm with heart rates between 62-75 bpm during the exam. Left Ventricle: The left ventricle is normal in size. Proximal septal thickening is noted. There is no thrombus. The ejection fraction is estimated to be 65-70%. There are no focal wall motion abnormalities. MV E/A: 0.81 Med Peak E' Donnell: 4.8 cm/sec E/E' med: 17.3. Right Ventricle: The right ventricle is normal in size and function. Atria: The left atrial size is normal. The right atrium is mildly dilated. There is no Doppler evidence for an interatrial shunt. Injection of contrast documented no interatrial shunt. Mitral Valve: The mitral valve leaflets are slightly calcified. The mitral valve chordae are thickened and/or calcified. There is trace mitral regurgitation. Aortic Valve: The aortic valve is trileaflet. The aortic valve opens well. There is no aortic valve stenosis. No aortic regurgitation is present. Tricuspid Valve: The tricuspid valve is normal in structure and function. There is trace tricuspid regurgitation. The right ventricular systolic pressure is estimated to be at least 32 mmHg based on an estimated right atrial pressure of 3 mm Hg. Pulmonic Valve: The pulmonic valve is not well seen, but is grossly normal. There is trace pulmonic regurgitation. Great Vessels: The aortic root is normal size. The dimensions of the ascending aorta are normal. The IVC is of normal diameter and collapses greater than 50% with a sniff. This suggests a low right atrial pressure of 3 mm Hg. Pericardium/ Pleura There is a trace loculated pericardial effusion. There are no echocardiographic indications of cardiac tamponade. There is no pleural effusion. MMode/2D Measurements & Calculations LVIDd: 5.3 cm LVOT diam: 2.1 cm LVIDs: 3.2 cm Ao root diam: 3.1 cm FS: 39.5 % asc Aorta Diam: 3.3 cm EPSS: 0.76 cm IVSd: 1.0 cm LVPWd: 0.91 cm LV mendosa. diameter/BSA (cm/m^2): 2.5 LV sys. diameter/BSA (cm/m^2): 1.5 LA A2 area: 19.5 cm2 RA long axis: 5.7 cm LA A4 area: 23.5 cm2 RA area: 22.2 cm2 LA length (vol): 6.1 cm RA vol: 73.4 ml LA vol: 64.1 ml RA : 34.8 ml/m2 LA vol index: 30.5 ml/m2 IVC diam: 0.99 cm RVD1 (basal): 3.5 cm RVD2 (mid): 2.7 cm Doppler Measurements & Calculations Ao V2 max: 193.4 cm/sec LVOT Max Donnell: 112.9 cm/sec Ao V2 mean: 141.8 cm/sec LV V1 max P.1 mmHg Ao max P.0 mmHg LV V1 VTI: 23.4 cm Ao mean P.6 mmHg LORRAINE(I,D): 2.1 cm2 Ao V2 VTI: 38.9 cm LORRAINE(V,D): 2.0 cm2 sev ratio: 0.60 LORRAINE indexed to BSA (cm^2/m^2): 0.99 MV E max donnell: 83.7 cm/sec TR max donnell: 270.6 cm/sec MV A max donnell: 102.9 cm/sec TR max P.3 mmHg MV E/A: 0.81 PA V2 max: 106.5 cm/sec Med Peak E' Donnell: 4.8 cm/sec PA V2 mean: 80.9 cm/sec E/E' med: 17.3 PA mean P.8 mmHg Lat Peak E' Donnell: 6.8 cm/sec PA pr(Accel): 53.3 mmHg E/E' lat: 12.3 E/e' average: 14.8 MV dec time: 0.22 sec SV(LVOT): 81.0 ml Reading Physician:01:40 PM
[2023-08-27 08:00] VITALS: BP 133/67; PULSE 87; RESP 16; TEMP 36.4; O2SAT 94
--- NOTE | 2023-08-27 08:20 | DI.MRI.S_ITS ---
PROCEDURE: MR HEAD/BRAIN WO CON INDICATIONS: rule out stroke TECHNIQUE: Non-contrast axial T1 spin echo, axial T2 fast spin echo, sagittal and axial FLAIR, coronal T2 fast spin echo, axial gradient echo, axial diffusion and ADC through the brain. COMPARISON: [facility], CT, CT ANGIO HEAD AND NECK, 08/26/2023, 20:00. FINDINGS: Image quality: Degraded by motion artifact. CSF spaces: Ventricles appear symmetric in size and shape. Basal cisterns are patent. No extra-axial fluid collections. Brain: No intracranial bleeds or mass effects. There is cerebral volume loss for age. There are periventricular and deep white matter chronic small vessel ischemic changes. Brainstem appears normal. Diffusion-weighted images show no acute infarct. No chronic ischemic insults. Normal intravascular flow voids are present. Skull and face: Calvarial bone marrow is normal in signal. Orbits are normal. Sinuses: Sinuses and mastoids are clear. IMPRESSION: 1. No acute process. No recent infarct. 2. Mild volume loss and small vessel ischemic disease. Dictated by: Rafael Steven M.D. on 08/27/2023 at 10:49 Approved by: Rafael Steven M.D. on 08/27/2023 at 10:51
--- NOTE | 2023-08-27 08:31 | CM.DANOTE ---
Initial DCP Assessment Visit Note Reviewed EMR for pt's medical status and initial anticipated d/c needs. Went to meet pt at bedside for further assessment, she was found to be sitting upright in her recliner sleeping, no family in the room at this time. Will plan to check-in with her dtr later today to discuss pt's status and support/resource needs. Payor: Nicky Dinh. PCP: Ailyn Fitzgerald Pt is a 78 year-old F who presented the ED on 08/26/23 via EMS after experiencing a stroke at the local [facility] while out dining with her family. Pt and spouse are from out of town visiting their dtr and son-in-law when shortly after dinner she demonstrated sudden onset confusion, difficulty speaking, and could only utter word salad. She was also struggling with comprehension, and by the time EMS arrived she had declined rapidly. She is the cg for her spouse, who has baseline memory deficits and is not a good historian in recalling the events leading up to the stroke. ED eval found her to be hypotensive, also condusive of an acute CVA with significant expressive aphasia and altered mental status. Pt did begin to improve in the ED to the point where she was able to express having a headache, and was able to answer questions appropriately. Pt was then admitted to the floor for further evaluation and tx. DCP to follow and assist with any evolving d/c needs. Discharge Planning/Care Management CM Discharge Assessment Start: 08/27/23 08:28 Freq: Status: Active Protocol: Document 08/27/23 08:29 DPL (Rec: 08/27/23 08:31 DPL [id number]) Discharge Planning Assessment Assigned Licensed Practical Nurse Clinic Nurse ROSANNE Smith Advance Directives? No History Provided By Medical Record Has Patient been admitted in last 30 No days? Prior Living Arrangements House Household Members spouse Type of transporation used prior to Drives own vehicle admit Independent with ADL's Yes Is patient alert and oriented? Yes Caregiver for Another Yes: Pt's spouse has memory deficits. Comment Pt is visiting from out of town to see family, she will f /u with her PCP OP once she returns home. Barriers to Discharge No Discharge Plan Home Transportation Arrangement Family Referrals Initiated None needed Whiteboard Updated in Patient Room with Yes name and ext. # of Licensed Practical Nurse Clinic Nurse Review Status In Process Please Provide Date Initial DC 08/27/23 Assessment Was Performed
[2023-08-27 08:43] LABS: Magnesium 1.4 mg/dL (1.6-2.3)
[2023-08-27 08:45] LABS: Hemoglobin A1C% w Est Avg Glu 6.7 % (4.0-6.0)
--- NOTE | 2023-08-27 09:16 | ST.IPSLE ---
Visit Care Team Role Provider Type Ailyn Fitzgerald PA-C Primary Care Provider Non-Staff Specialty: Medical [address]: [address] [place] [address] [address], [place], [address] Email: Tammy Valladares DO Emergency Provider Physician Referring Provider Specialty: Emergency Medicine Address: [address] [place] [address], [address] Email: [email or web address] Devante Valdez MD Admit Provider Physician Attending Provider Specialty: Internal Medicine Address: [address] [place] [address], [id number] Fax: Email: Current Diagnoses Cerebral infarction, unspecified (08/26/23) Speech-Language Pathology Speech/Language Eval SENIOR FRONT END ENGINEER Adult Cognitive Linguistic Eval Start: 08/27/23 08:54 Freq: Status: Active Protocol: Document 08/27/23 08:54 MA (Rec: 08/27/23 09:16 MA [id number]) Adult Cognitive Linguistic Evaluation Session Time Visit Start Time 08:25 Visit Stop Time 08:55 Total Visit Minutes 30 Visit Information Visit Number [address] Devante Gorman Reason for Referral Aphasia Setting Assessment Location Acute Care Visit Type Note Type Initial evaluation Next Note Type Next Note Type Treatment Note Patient Information Identification Type Name,Wristband Patient History Per H&P: 78 years old female with a past medical history of hypertension and not a very good historian at this time was brought to the emergency room as a code stroke. Patient was visiting from out of town at the [facility] and developed difficulty with speech and altered mental status. Time of onset for the symptoms were unclear. Initially, it was started around 6 PM. I spoke to the daughter who discussed with her dad/patient's and also we reviewed with the security staff. The onset of symptoms were still unclear at this time. Patient has difficulty in comprehending and able to follow commands only intermittently. Unable to get any history from the patient and has word salad at this time. Able to raise extremities at times but full evaluation is unable to be done. Blood pressure on arrival was 217/94. Follow-up CT brain/CT angio of the head and neck was negative in the emergency room. Discussed with teleneuro and after further review, was deemed not a candidate for tPA at this time. Further basic labs including CBC showed a hemoglobin of 10.5 while the electrolytes showed a creatinine of 1.05 and a blood sugar of 96 with a troponin of 0.012. Urine analysis was negative for WBCs. Urine tox screen was negative. Influenza and COVID was negative. Patient received a dose of aspirin 325 mg and admitted for further evaluation. Pt referred for ST evaluation d/t Pt presenting to ED with aphasia and word salad with suspected CVA, however MD reports not confirmed by MRI yet. Nursing reports Pt responds primarily by saying Elton and weiss, however was able to read words on paper during stroke assessment. Nursing reports no observed swallowing difficulties. Subjective Patient Report Pt sitting upright in recliner in room sleeping. Pt demonstrated difficulties waking up given max verbal cues and would open eyes occasionally. Pt with minimal participation given sleepiness . Assessment Oral Motor Examination Completed No Results Unable to complete d/t Pt falling asleep during evaluation. Informal Assessment Receptive Language Normal No Expressive Language Normal No Expressive Language Impairment(s) Expression of basic wants/ needs,Expression of complex thoughts/ideas Formal Assessment Standardized Test/Screener Type Quick Aphasia Battery (QAB) Administration Initiated Results ST attempted to administer the QAB, however d/t Pt falling asleep during evaluation unable to complete. Pt stated mine was asked what her name is and her as 45, which is close to her actual birthday. She completed picture naming task in 4/6 opportunitites, stating elton for drum and adan for horse, however able to correct self when cued. She pointed to correct pictures named with 100% accuracy, and was able to stated 1-10 and sentence completion task with 100% accuracy. She demonstrated difficulties reciting days of the week and required a verbal cue to initiate. She answered Y/N questions correctly in 4/ 6 opportunitites, however may have preseverated on yes response. When asked what happenend in regards to her coming to the hospital she demonstrated paraphasias and jargon characterized by her stating Adan, elton, weiss, emiliano, 8,7,6,5,4,3,2,1). Findings/Results Language Function Moderately-severely impaired Findings Pt presents with mod-severe expressive language disorder characterized by jargon and paraphasias. Unable to determine level of cognition d /t language deficits. Reduced participation d/t Pt sleepy during evaluation. Prognosis Prognosis Fair Plan of Care Speech-Language Treatment Yes Frequency Daily while inpatient Patient/Caregiver Education Described results of evaluation,Family/caregivers require further education/ training Short Term Goals STG 1: The patient will accurately answer biographical /functional yes/no questions using words/head nods/or pointing to written words with 80% accuracy. STG 2: Patient will follow 2- step commands related to functional living environment with 80% accuracy and mod cues in order to increase functional integration into environment. STG 3: Patient will complete simple sentences with use of compensatory strategies with 80% accuracy and mod cues. STG 4: Patient will complete automatic speech tasks with 80 % accuracy and mod cues. STG 5: Patient will name/ describe objects/pictures with 80% accuracy and mod cues for forced choice, phonemic/ semantic cueing, gestural/ contextual cues. Wharf Worker Goals LTG 1: Patient will develop functional, cognitive- linguistic-based skills and utilize compensatory strategies to communicate wants and needs effectively to different conversational partners, maintain safety and participate socially in functional living environment Discharge Recommendations Outpatient therapy
--- NOTE | 2023-08-27 09:25 | PT.IIE ---
Current Diagnoses Cerebral infarction, unspecified (08/26/23) Physical Therapy Inpatient Evaluation/Re-Eval M1 PT/OT-IP Prior Functional Status Start: 08/27/23 11:02 Freq: NEEDED Status: Active Protocol: Document 08/27/23 09:25 AB (Rec: 08/27/23 11:19 AB [id number]) Medical Review Prior Functional Status Medical History Reviewed Yes Communication able to make needs known but with confusion and aphasia; occasionally gives unclear responses Mobility and Gait pt stated that she was independent with all mobilities and ambulation without AD Social History Household Members spouse Living Arrangements House Number of Floors (Floors) One Floor Number of Stairs To Enter/Railing? 3 steps B rails to enter the house Home Environment Standard Height Toilet,Tub/ Shower Additional Social History Comment pt stated that spouse will not be able to assist her M2 PT-IP Current Condition Start: 08/27/23 11:02 Freq: NEEDED Status: Active Protocol: Document 08/27/23 09:25 AB (Rec: 08/27/23 11:19 AB [id number]) Physical Therapy Current Condition Current Condition Evaluation Date 08/27/23 Treatment Diagnosis CVA; difficulty in walking Onset Date 08/26/23 M3 PT-IP Subjective Start: 08/27/23 11:02 Freq: NEEDED Status: Active Protocol: Document 08/27/23 09:25 AB (Rec: 08/27/23 11:19 AB [id number]) Subjective Physical Therapy Visit Type Type Initial Evaluation Visit Start Time 09:25 Visit Stop Time 09:52 Total Visit Minutes 27 Number of ABA THERAPIST Visits 0 Physical Therapy Visit Comments Patient Comments agreeable to do PT Therapy Pain Assessment Pain Present Pain Present Denied Pain M4 PT-IP Mobility and Gait Start: 08/27/23 11:02 Freq: NEEDED Status: Active Protocol: Document 08/27/23 09:25 AB (Rec: 08/27/23 11:19 AB [id number]) PT-Bed Mobility Assessment Supine to Sit Supine to Sit Standby Assistance Sit to Supine Sit to Supine Standby Assistance PT-Transfer Assessment Sit to and From Stand Sit to and from Stand Standby Assistance,1 Person Assistance,Use of Upper Extremities Equipment Transfer Assistive Device None,Gait Belt Orthotic/Prosthetic Devices or Brace: No Transfers Transfer Destination Bed,Chair Transfer Technique Stand Step Pivot Transfer Ability Level of Assist Standby Assistance,Contact Guard Assistance Comments Mobility Comments pt sitting on the chair and agreeable to do PT. obtained PLOF and home set up from pt. Pt is inconsistent with info provided and occasionally has unclear speach. completed sit to stand from the chair without AD SBA and was able to take a few steps to the bed without AD SBA to CGA. pt completed bed mobility sit<> supine SBA. completed sit to stand from the bed SBA and ambulated in room [facility] AD CGA to min A with LOB x 2. presentes with ataxic gait with increase lateral trunk lean to the L. pt sat back on the chair. agreed to use a FWW and educated on walker use . pt completed ambulation using FWW ~ 30 ft SBA to occasional CGA during turning and cues for safety. pt can be impulsive and has decrease safety awareness stating that she feels steady but with LOB. pt sat back on the chair and positioned. call light and table placed within reach. chair alarm on. Gait Assessment Gait Gait Assistance Required: Standby Assistance,Contact Guard Assist,Minimum Assistance Distance (Feet) 35 Able to Maintain Weight Bearing Status Yes During Gait Assistive Devices Assistive Device None,Gait Belt,Front Wheeled Walker Orthotic/Prosthetic Devices or Brace: No Gait Deviations General Gait Pattern Ataxic,Decreased Stride Length ,Decreased Feet Clearance, Flexed Trunk Factors Limiting Gait Function Factors Limiting Gait Function Decreased Activity Tolerance, Decreased Strength,Difficulty Following Directions,Poor Balance,Poor Safety Awareness PT-Balance Assessment Sitting Balance and Reactions Static Sitting Balance Ability Normal Dynamic Sitting Balance Ability Good Standing Balance and Reactions Static Standing Balance Ability Good Dynamic Standing Balance Ability Fair Device Used without AD M5 PT-IP Objective Assessments Start: 08/27/23 11:02 Freq: NEEDED Status: Active Protocol: Document 08/27/23 09:25 AB (Rec: 08/27/23 11:19 AB [id number]) Orientation Orientation/Cognition Level of Alertness Confusional State Orientation Name,Place,Situation Language Function Ability Garbled Speech,Word Finding Difficulties Safety Awareness Decreased Safety Awareness Memory Description Short Term Impaired,Fci Impaired Gross Range of Motion Lower Extremity ROM Assessment Within Functional Limits Strength Lower Extremity Strength Assessment Within Functional Limits Muscle Tone Muscle Tone WNL Yes M6 PT-IP Treatment Start: 08/27/23 11:02 Freq: NEEDED Status: Active Protocol: Document 08/27/23 09:25 AB (Rec: 08/27/23 11:19 AB [id number]) Physical Therapy Treatment Education Education Provided Safety M7 PT-IP Assessment and Plan Start: 08/27/23 11:02 Freq: NEEDED Status: Active Protocol: Document 08/27/23 09:25 AB (Rec: 08/27/23 11:19 AB [id number]) PT Summary Assessment and Plan Potential Rehabilitation Potential Fair Status of Condition at Evaluation Evolving Summary Impairments Balance,Coordination,Sensation ,Tone,Cognition,Bed Mobility, Transfers,Gait,Activity Tolerance Assessment Summary pt is a 78 y/o F who presented to the ED with difficulty with speech. pt admitted for CVA. pt requiring SBA to CGA with ambulation using FWW but requires CGA to min A without AD with (+) LOB x 2. pt with decrease safety awareness and is a high fall risk. pt stated that spouse will not be able to assist her. pt will benefit from acute rehab vs SNF. will continue to assess progress. Goals Bed Mobility Goal Independent Transfer Goal Independent,Front Wheeled Walker Gait Goal Independent,Front Wheel Walker Gait Distance 300 Other Goals improve transfers and ambulation without AD ~ 300 ft mod I up/down 3 steps B rails mod I Days to Meet Goals 10 Frequency of Treatment Frequency Of Treatment Once a Day Treatment Plan Physical Therapy Treatment Plan Bed Mobility Training,Transfer Training,Gait Training, Therapeutic Exercise,Balance Retraining,Post Op Education, Discharge Planning,Hot or Cold Pack,Neuromuscular Re-ed, Coordination Retraining,Manual Therapy Precautions Other Precautions falls Recommendations To Nursing Amount of Assist Needed 1 Person Assist Discharge Recommendations PT Discharge Recommendations SNF vs Acute Rehab Equipment Needed for Home Before FWW if pt goes home Discharge Transportation Needs at Discharge Private Vehicle,Wheelchair/ Cabulance
[2023-08-27] MEDS: METFORMIN HCL 500 MG TABLET PO (09:42)
[2023-08-27] MEDS: ASPIRIN EC 81 MG TABLET PO (09:42)
[2023-08-27] MEDS: ENOXAPARIN 40 MG/0.4 ML SYRINGE SUBCUT (09:42)
--- NOTE | 2023-08-27 10:30 | OT.IP.EVAL ---
Current Diagnoses Cerebral infarction, unspecified (08/26/23) Occupational Therapy Inpatient Evaluation/Re-Eval M1 PT/OT-IP Prior Functional Status Start: 08/27/23 14:09 Freq: NEEDED Status: Active Protocol: Document 08/27/23 14:10 [facility] (Rec: 08/27/23 14:36 [facility] [id number]) Medical Review Prior Functional Status Medical History Reviewed Yes Communication Pt independent during PM, but still having STM issues. Mobility and Gait pt stated that she was independent with all mobilities and ambulation without AD Activities of Daily Living and IADL's Pt completely independent with all ADL, IADl, and driving needs. Prior Functional Level (Other details) Pt states takes care of her . Social History Household Members spouse Living Arrangements House Number of Floors (Floors) One Floor Number of Stairs To Enter/Railing? 3 steps B rails to enter the house Home Environment Standard Height Toilet,Tub/ Shower Home Equipment Front Wheel Walker Additional Social History Comment pt stated that spouse will not be able to assist her. Pt states her has a fww that she can use if needed and not wanting to get a fww issued to her. M2 OT-IP Current Condition Start: 08/27/23 14:09 Freq: Status: Active Protocol: Document 08/27/23 14:10 [facility] (Rec: 08/27/23 14:36 [facility] [id number]) Occupational Therapy Current Condition Current Condition Evaluation Date 08/27/23 Treatment Diagnosis CVA symptoms, altered mental status Diagnosis Onset Date 08/26/23 M3 OT- IP Subjective and Pain Start: 08/27/23 14:09 Freq: Status: Active Protocol: Document 08/27/23 14:10 [facility] (Rec: 08/27/23 14:36 [facility] [id number]) OT- Subjective Occupational Therapy Visit Type Type Initial Evaluation Visit Start Time 10:30 Visit Stop Time 14:10 Total Visit Minutes 63 Occupational Therapy Visit Comments Patient Comments Pt seen twice as having an Echo in between. Patient/Caregiver Goals To go home. OT Pain Assessment Pain When Pain Assessed At Rest Pain Present Pain Present Denied Pain M4 OT- IP ADL's Start: 08/27/23 14:09 Freq: Status: Active Protocol: Document 08/27/23 14:10 [facility] (Rec: 08/27/23 14:36 [facility] [id number]) OT [id number] General Evaluation Self-Feeding Ability Independent OT ADL-Grooming General Evaluation Grooming Ability Independent OT ADL-Oral Care General Eval Oral Care Ability Independent OT ADL-Dressing General Eval Upper Body Dressing Ability Minimal Assistance Lower Body Dressing Ability Standby Assistance Comments OT Dressing Comments Pt JOSE GUADALUPE to assist with her bra fastener. Pt SBA with all LB dressing needs and able to sit to get her underwear and jeans on. Pt a little distracted and not able to fit her shoe which was in front of her initially. OT ADL-Toileting Comments OT Toileting Comments Pt states has been able to use the toilet on her own. OT ADL-Bathing Comments OT Bathing Comments Pt would benefit from a shower chair but pt refusing and states, I am good with just the grab bar in the shower. M5 OT- IP IADL's Start: 08/27/23 14:09 Freq: Status: Active Protocol: Document 08/27/23 14:10 [facility] (Rec: 08/27/23 14:36 [facility] [id number]) OT-Instrumental Activities of Daily Living Home Safety Awareness Awareness of Need for Assistance at Home Decreased Awareness Ability to Problem Solve Emergency Unable to Problem Solve Situations Home Safety Comments Pt not able to figure out what to do in case the toilet overflows, and states would open a door for a stranger as she feels that her neighborhood is safe. Medication Management Medication Management Comments Pt states take medication straight out of her pill bottles. Money Management Money Management Comments Pt would benefit from supervision. Pt states writes checks. Meal Preparation Meal Preparation Comments At this time pt would benefit from supervision for safety and for decreased dynamic balance at this time. Cephalometric Tracer Cephalometric Tracer Comments Pt would benefit from supervision and assist. Driving Driving Concerns Identified Regarding Safety M6 OT- IP Functional Cognition Start: 08/27/23 14:09 Freq: Status: Active Protocol: Document 08/27/23 14:10 [facility] (Rec: 08/27/23 14:36 [facility] [id number]) Cognitive Factors Limiting Selfcare Function Cognitive Ability Level of Alertness Alert Patient Orientation Name,Place,Situation Attention Span Ability Capable of Focused Attention, Capable of Sustained Attention Ability to Follow Commands Able to Follow One Step Commands Memory Description Short Term Impaired,Working Impaired Safety Awareness Underestimates Need for Assistance Cognitive Comments Cognitive Assessment Comments Pt scored 187 seconds on [place] Making Part B which implies severe deficit with visual attention, speed of processing , task switching, executive functioning, and mental flexibility. Encourage pt not to drive yet and to have assist at this time. OT- Vision and Hearing OT- Hearing Assessment OT- Hearing Assessment WFL OT- Vision Assessment Visual Acuity Glasses All The Time Visual Attentiveness WFL Occular Pursuits WFL Visual Convergence WFL Visual Young WFL M7 OT- IP Mobility and Balance Start: 08/27/23 14:09 Freq: Status: Active Protocol: Document 08/27/23 14:10 [facility] (Rec: 08/27/23 14:36 [facility] [id number]) OT- Bed Mobility Assessment Sit to Supine Sit to Supine Assist Independent OT-Transfer Assessment Sit to and From Stand Sit to and from Stand Independent,Standby Assistance Transfers Transfer Ability Standby Assistance Technique Transfer Destination Bed,Chair Transfer Technique Stand Step Pivot Comments Mobility Comments Pt a bit unsteady on her feet in AM and more steady in PM visit with pt. Pt states feels 90% physically and admits to feeling wobbly but insistent that she will not need the FWW and that her has one at home if needed. OT- Balance Assessment Sitting Balance and Reactions Static Sitting Balance Ability Normal Dynamic Sitting Balance Ability Normal Standing Balance and Reactions Static Standing Balance Ability Good Dynamic Standing Balance Ability Fair M8 OT- IP Objective Assessments Start: 08/27/23 14:09 Freq: Status: Active Protocol: Document 08/27/23 14:10 [facility] (Rec: 08/27/23 14:36 [facility] [id number]) OT Gross Range of Motion Upper Extremity Range of Motion Assessment Within Functional Limits OT Strength Upper Extremity Strength Assessment Within Functional Limits Hand Tool Grinder Operator External Strength Hand Dominance Right Comments Strength Comments 5/5 throughout for BUE OT- Coordination Assessment Upper Extremity Finger to Nose Test Right UE Impaired Comments Coordination Comments Right hand slightly off in AM and intact in PM. 9 hole peg right hand less than 10% for her age and left hand at 25th percentile. Both right and left hand at 30 seconds. Pt having difficulty to fasten her bra at this time and needing assist for the top hook. OT-Muscle Tone Assessment Muscle Tone WNL Yes OT Sensation Assessment Comments Summary Comments Intact for light touch and needing increased time to states the body part touched. M9 OT- IP Assessment and Plan Start: 08/27/23 14:09 Freq: Status: Active Protocol: Document 08/27/23 14:10 [facility] (Rec: 08/27/23 14:36 [facility] [id number]) OT Summary Assessment and Plan Potential Rehabilitation Potential Excellent Analytic Complexity at Evaluation Moderate Summary OT Impairments Strength,Balance,Coordination, Functional Cognition, Functional Mobility,Dressing, Toileting,Bathing,Toilet Transfers,Shower Transfers Progress Towards Goals Progressing Toward Goals Assessment Summary Pt MOD complexity main barriers are decreased STM, FMS, and decreased mobility needs. Pt would benefit from home health to assess home environment and needs, per pt not wanting to have home health. Pt will benefit from assist at home especially for driving and IADL needs.Pt is insistent that she will be fine at home but having decreased STM and scored poorly on [place] Making Part B which implies pt has impaired visual attention, task switching,speed of processing, mental flexibility, and executive functioning. Goals Dressing Goal Independent Toileting Goal Independent Bathing Goal Independent Toilet Transfer Goal Independent Shower Transfer Goal Independent Days to Meet Goals 5 Frequency of Treatment Frequency Of Treatment Once a Day Treatment Plan OT Treatment Plan ADL Training,Functional Cognition Training,Functional Mobility,Patient/Family Education,Discharge Planning Discharge Recommendations OT Discharge Recommendations Home with Assistance,Home Health Home Equipment Needs shower chair, FWW Transportation Needs at Discharge Private Vehicle
[2023-08-27 12:00] VITALS: BP 140/70; PULSE 81; RESP 16; TEMP 36.4; O2SAT 98
--- NOTE | 2023-08-27 13:52 | P.DS_ITS ---
History of Present Illness History of Present Illness Chief complaint: Stroke Narrative: 78 years old female with a past medical history of hypertension and not a very good historian at this time was brought to the emergency room as a code stroke. Patient was visiting from out of town at the [facility] and developed difficulty with speech and altered mental status. Time of onset for the symptoms were unclear. Initially, it was started around 6 PM. I spoke to the daughter who discussed with her dad/patient's and also we reviewed with the security staff. The onset of symptoms were still unclear at this time. Patient has difficulty in comprehending and able to follow commands only intermittently. Unable to get any history from the patient and has word salad at this time. Able to raise extremities at times but full evaluation is unable to be done. Blood pressure on arrival was 217/94. Follow-up CT brain/CT angio of the head and neck was negative in the emergency room. Discussed with teleneuro and after further review, was deemed not a candidate for tPA at this time. Further basic labs including CBC showed a hemoglobin of 10.5 while the electrolytes showed a creatinine of 1.05 and a blood sugar of 96 with a troponin of 0.012. Urine analysis was negative for WBCs. Urine tox screen was negative. Influenza and COVID was negative. Patient received a dose of aspirin 325 mg and admitted for further evaluation Discharge Providers Provider Date of admission: 08/26/23 22:37 Discharge Date: 08/27/23 Primary care physician: Ailyn Fitzgerald PA-C Consults: 08/26/23 23:54 Consult to Occupational Therapy Evaluate & Treat Comment: Physician Instructions: Evaluate and treat Consult to Physical Therapy Evaluate & Treat Comment: Physician Instructions: Evaluate and Treat Consult to Speech Therapy Evaluate & Treat Comment: Physician Instructions: Evaluate and treat 08/27/23 13:32 Consult to Home Health Routine Comment: Reason For Exam: PT/OT 08/27/23 13:50 Consult to Physical Therapy Evaluate & Treat Comment: safe home mobility Physician Instructions: Front Wheeled Walker Discharge provider: Cam Jean DO Summary Hospital Course Discharge Diagnosis: 1. CVA acute with expressive aphasia and altered mental status. 2. Renal dysfunction appears more of mild volume depletion with a BUN of 21 and a creatinine on 1.05. Improved with IVF. 3. Anemia. MCV is normal but the RDW is increased. B12 low at 183, folate normal. Placed on B12 supplement 1000mcg daily. Defer management to PCP. 4. DM2. A2c 6.7%. Patient on metformin and glipizide. Will continue on discharge. Hospital Course: Admitted for likely stroke with acute-onset wernicke's aphasia/word salad. Was not given tPA due to discrepancy over timing of last known normal. Patient symptoms improved vastly overnight, and MRI the next day was normal with no evidence of stroke. Echo without clot or PFO and EF 65-70%. Placed on DAPT due to ABCD score of 6. Already on statin and her LDL was well-controlled at 66. A1c 6.7% and already on metformin. PT/OT recommended HH with a walker given some balance instability. Incidentally found to be anemic with Hgb 10.4 and B12 level checked which was 183. Placed on daily 1000mcg B12 supplement. PCP should follow-up on workup about why she is [id number]. Exam Vital Signs (past 8 hours): - 08/27/23 05:54 08/27/23 08:00 08/27/23 12:00 Temperature 97.6 F 97.6 F Pulse Rate 87 81 Respiratory Rate 16 16 Blood Pressure 153/58 H 133/67 140/70 Pulse Oximetry 94 98 Oxygen Delivery Method Room Air Oxygen Flow Rate 2 Narrative Exam Narrative: GEN: no acute distress, talking normally in full sentences HEENT: moist mucous membranes, PERRL NECK: trachea midline, no JVD CV: regular rate and rhythm, no murmurs PULM: clear bilaterally ABD: soft, nontender, nondistended, no organomegaly EXT: warm and well perfused with no edema NEURO: awake, alert, oriented, no focal deficits Objective Labs 08/27/23 04:24 08/27/23 04:24 Labs: Laboratory Results - last 24 hr 08/26/23 08/26/23 08/26/23 20:12 20:20 21:07 WBC 8.1 RBC 4.00 Hgb 10.5 L Hct 32.3 L MCV 80.7 MCH 26.1 MCHC 32.4 RDW 15.1 H Plt Count 241 Neut % (Auto) 67.4 Lymph % (Auto) 21.4 L [place] % (Auto) 8.7 Eos % (Auto) 2.0 Baso % (Auto) 0.5 Neut # (Auto) 5500 Lymph # (Auto) 1700 [place] # (Auto) 700 Eos # (Auto) 200 Baso # (Auto) 0 PT 12.9 H INR 1.1 APTT 28 Sodium 134 L Potassium 3.9 Chloride 100 Carbon Dioxide 26 BUN 21 H Creatinine 1.05 H Estimated GFR 54 L BUN/Creatinine Ratio 20.0 Glucose 96 Hemoglobin A1c Calcium 10.3 H Phosphorus Magnesium Total Bilirubin 0.5 AST 25 ALT 20 Alkaline Phosphatase 60 Total Creatine Kinase 138 H Troponin I < 0.012 Total Protein 7.4 Albumin 4.1 Globulin 3.3 Albumin/Globulin Ratio 1.2 Triglycerides Cholesterol LDL Cholesterol, Calc HDL Cholesterol Vitamin B12 Folate TSH Urine Color Yellow Urine Appearance Clear Urine pH 5.5 Ur Specific [place] 1.020 Urine Protein Negative Urine Glucose (UA) Negative Urine Ketones Trace H Urine Occult Blood Negative Urine Nitrate Negative Urine Bilirubin Negative Urine Urobilinogen 0.2 Ur Leukocyte Esterase Negative Urine RBC 0-1/hpf Urine WBC None seen Ur Squamous Epith Cells 0-1 /hpf Urine Bacteria None seen Ur Culture Indicated? Cult not indicated U Opiates 300ng/mL cut Negative Ur Oxycodone Screen Negative Urine Methadone Screen Negative Ur Barbiturates Screen Negative U Tricyclic Antidepress Negative Ur Phencyclidine Scrn Negative Ur Amphetamines Screen Negative U Methamphetamines Scrn Negative Ur MDMA Scrn (Ecstasy) Negative U Benzodiazepines Scrn Negative Urine Cocaine Screen Negative U Marijuana (THC) Screen Negative Urine Specific [place] Ethyl Alcohol < 10 Ur Creatinine SARS-CoV-2 (PCR) Negative Influenza A (RT-PCR) Flu a negative Influenza B (RT-PCR) Flu b negative RSV (PCR) Negative 08/26/23 08/27/23 08/27/23 21:07 04:24 08:35 WBC 10.0 RBC 3.96 L Hgb 10.4 L Hct 31.7 L MCV 80.0 MCH 26.3 MCHC 32.8 RDW 15.1 H Plt Count 270 Neut % (Auto) 85.6 H Lymph % (Auto) 8.7 L [place] % (Auto) 5.3 Eos % (Auto) 0.1 L Baso % (Auto) 0.3 Neut # (Auto) 8600 H Lymph # (Auto) 900 L [place] # (Auto) 500 Eos # (Auto) 0 Baso # (Auto) 0 PT INR APTT Sodium 132 L Potassium 4.1 Chloride 99 Carbon Dioxide 25 BUN 16 Creatinine 0.92 Estimated GFR > 60 BUN/Creatinine Ratio 17.4 Glucose 170 H Hemoglobin A1c 6.7 H Calcium 9.7 Phosphorus 3.7 Magnesium 1.4 L 1.4 L Total Bilirubin 0.6 AST 25 ALT 20 Alkaline Phosphatase 53 Total Creatine Kinase Troponin I 0.036 H Total Protein 7.3 Albumin 4.0 Globulin 3.3 Albumin/Globulin Ratio 1.2 Triglycerides 59 Cholesterol 133 L LDL Cholesterol, Calc 66 HDL Cholesterol 55 Vitamin B12 183 L Folate 13.7 TSH 1.40 Urine Color Urine Appearance Urine pH Normal Ur Specific [place] Urine Protein Urine Glucose (UA) Urine Ketones Urine Occult Blood Urine Nitrate Urine Bilirubin Urine Urobilinogen Ur Leukocyte Esterase Urine RBC Urine WBC Ur Squamous Epith Cells Urine Bacteria Ur Culture Indicated? U Opiates 300ng/mL cut Ur Oxycodone Screen Urine Methadone Screen Ur Barbiturates Screen U Tricyclic Antidepress Ur Phencyclidine Scrn Ur Amphetamines Screen U Methamphetamines Scrn Ur MDMA Scrn (Ecstasy) U Benzodiazepines Scrn Urine Cocaine Screen U Marijuana (THC) Screen Urine Specific [place] Normal Ethyl Alcohol Ur Creatinine Normal SARS-CoV-2 (PCR) Influenza A (RT-PCR) Influenza B (RT-PCR) RSV (PCR) FORMERLY [facility], 1928–1983 Social History household members: spouse Smoking Status: Unknown if ever smoked Discharge Plan Discharge Plan Patient Disposition: Home Health Service Provider Discharge Comment: You likely had a TIA, which is a stroke that clears given your symptoms resolved and your brain MRI was normal. You will now be on a baby aspirin indefinitely, plus plavix for 3 weeks. Your heart echo was normal. We incidentally found that your B12 levels were low so I have put you on a B12 supplement daily. Please follow-up with your PCP within [address] Jean Discharge orders & Medications Prescriptions: New aspirin 81 mg Tablet,Delayed Release (Dr/Ec) 81 mg PO DAILY Qty: 30 0RF clopidogrel 75 mg Tablet 75 mg PO DAILY 20 Days Qty: 20 0RF mecobalamin (vitamin B12) 1,000 mcg tablet,chewable 1,000 mcg PO DAILY Qty: 30 0RF Continued nystatin-triamcinolone 100,000-0.1 unit/gram-% ointment topical Follow up/Referrals: Ailyn Fitzgerald PA-C [Primary Care Provider] - 2 Weeks Visit Report/Discharge Packet Stand Alone Forms: Patient Portal/API, Stroke Signs & Symptoms Discharge Data Primary Care Provider: Ailyn Fitzgerald
--- NOTE | 2023-08-27 14:18 | CM.DPC ---
DCP Cont. Reviewed EMR and team rounds for status updates. Pt has improved significantly since admission, demonstrated by near baseline functioning and mental status. Plan is to d/c home today, she declines the need for Home Health. Dtr is en route to transport her home. Pt will f/u with her PCP for continued evaluation and monitoring of her CVA event. No further needs indicated for DCP at this time.
--- NOTE | 2023-08-27 14:30 | PC.NURSE ---
Pt is dressed and ready for discharge home with Daughter Brenda. IV's have been removed. Went over d/c instructions with Pt-discussed d/c meds, time of last dose, reviewed stroke education thoroughly, discussed blood thinners, and her plan for follow up with her PCP. Pt denied further questions and will be taken out via w/c by [facility] to POV with daughter and all belongings.
--- NOTE | 2023-08-27 18:36 | PC.NURSE ---
[facility] called stating that pt was arriving to their facility as a Code Stroke and requested records. Sent records via fax for continuity of care.
== END 2023-08-27 14:39 | disposition home or self-care (01) | DRG 69 ==
LOC: ED 21:06 → AC 21:33
PROVIDERS: Student in an Organized Health Care Education/Training Program; Admitting Provider Internal Medicine; Emergency Provider Emergency Medicine; PCP Physician Assistant Medical; Referring Provider Emergency Medicine; Visit Provider Internal Medicine
DX: G45.9 Transient cerebral ischemic attack, unspecified (principal); R47.01 Aphasia; E53.8 Deficiency of other specified B group vitamins; D64.9 Anemia, unspecified; E11.9 Type 2 diabetes mellitus without complications; Z79.84 Long term (current) use of oral hypoglycemic drugs
CPT/HCPCS: 0241U; 36415; 70450; 70496; 70498; 70551; 71045; 80053; 80061; 80305; 80320; 81001; 81003; 82550; 82607; 82746; 82962; 83036; 83735; 84100; 84443; 84484; 85025; 85610; 85730; 92523; 93005; 93010; 93306; 96374; 97162; 97166; 97530; 99285; 99291; 99292; J0360; J1650; J2405; J3475; Q9967